=== PATIENT | female | born 1985 | race Caucasian/White ===

== ENCOUNTER → 2017-02-14 | Outpatient (CLI) | payer OTHER ==
--- NOTE | 2017-02-14 20:18 | DI ---
MRI CERVICAL SPINE W/O CN,02/14/2017 2:48 PM: Clinical History: Neck pain after a fall from a horse. Previous Exam: None at this facility. Findings: Multiplanar MR images are obtained through the cervical spine without contrast. Alignment is anatomic. No fractures are seen. Marrow signal is preserved. The spinal cord descends normally with normal course and caliber and signal characteristics. The posterior fossa is unremarkable. The prevertebral soft tissues are unremarkable. There is some co ngenital narrowing of the central canal. Individual intervertebral disc spaces: C2/3: No significant stenosis. C3/C4: There is a very small central disc extrusion without significant stenosis. C4/5: There is a left paracentral disc extrusion measuring 3 mm and contributing to moderate to sever e central canal stenosis. There is no significant neural foraminal narrowing. C5/6: There is a left paracentral disc extrusion at this level also measuring 3 mm and contributing t o moderate central canal stenosis without significant neural foraminal narrowing. C6/7: There is some disc desiccation and annular fissuring and a broad-based disc bulge eccentric to the left with some mild central canal stenosis without significant neuroforaminal narrowing. Impression: C3/C4: There is a very small central disc extrusion without significant stenosis. C4/5: There is a left paracentral disc extrusion measuring 3 mm and contributing to moderate to sever e central canal stenosis. There is no significant neural foraminal narrowing. C5/6: There is a left paracentral disc extrusion at this level also measuring 3 mm and contributing t o moderate central canal stenosis without significant neural foraminal narrowing. C6/7: There is some disc desiccation and annular fissuring and a broad-based disc bulge eccentric to the left with some mild central canal stenosis without significant neuroforaminal narrowing.
== END ==
LOC: MRI 14:47
PROVIDERS: ATTEND Chiropractor
DX: M54.2 Cervicalgia (principal); M50.21 Other cervical disc displacement, high cervical region; M50.122 Cervical disc disorder at C5-C6 level with radiculopathy; M50.323 Other cervical disc degeneration at C6-C7 level
CPT/HCPCS: 72141

== ENCOUNTER → 2017-03-28 | Outpatient (CLI) | payer OTHER ==
[2017-03-28 17:32] LABS: BASOPHILS # (AUTO) 0.04 10*3/UL; BASOPHILS % (AUTO) 0.6 % (0-1); EOSINOPHILS # (AUTO) 0.23 10*3/UL; EOSINOPHILS % (AUTO) 3.4 % (0-8); HEMOGLOBIN 13.6 g/dL (12.0-16.0); MEAN CORPUSCULAR HEMOGLOBIN 31.5 PG (27-31); MEAN CORPUSCULAR HGB CONC 33.2 g/dL (33-37); MEAN CORPUSCULAR VOLUME 94.9 FL (81-99); MONOCYTES # (AUTO) 0.49 10*3/UL (0.3-0.8); MONOCYTES % (AUTO) 7.1 % (5-15); NEUTROPHILS % (AUTO) 55.4 % (50-80); RED BLOOD COUNT 4.32 10^6/uL (4.20-5.40)
[2017-03-28 17:44] LABS: PLATELET MORPHOLOGY COMMENT NORMAL MORPHOLOGY (NORM); RBC MORPHOLOGY COMMENT NORMAL MORPHOLOGY (NORM); WBC MORPHOLOGY COMMENT NORMAL MORPHOLOGY (NORM)
== END ==
LOC: MOB LAB 16:14
PROVIDERS: ATTEND Student in an Organized Health Care Education/Training Program
DX: R61 Generalized hyperhidrosis (principal); R53.83 Other fatigue; M25.541 Pain in joints of right hand
CPT/HCPCS: 36415; 84443; 84550; 85025; 85652; 86038; 86200; 86431

== ENCOUNTER → 2017-05-23 | Outpatient (CLI) | payer OTHER ==
[2017-05-23 11:45] LABS: BLOOD UREA NITROGEN 22 mg/dL (7-22); CALCIUM 9.5 mg/dL (8.7-10.7); EST GLOMERULAR FILTRATION > 60 (>60 ml/min/1.73m(2)); MAGNESIUM 1.9 mg/dL (1.6-2.4); SERUM ALBUMIN 4.7 g/dL (3.5-4.8)
== END ==
LOC: MOB LAB 10:26
PROVIDERS: ATTEND Nurse Practitioner Family
DX: R53.82 Chronic fatigue, unspecified (principal); I34.1 Nonrheumatic mitral (valve) prolapse
CPT/HCPCS: 36415; 80053; 82310; 82565; 82728; 83540; 83550; 83735; 84100; 86970

== ENCOUNTER 2018-11-18 01:50 | Inpatient (IN) ==
[2018-11-18] MEDS: Lactated Ringers-OB Dept 1,000 ML PRIMARY IV SCH ×4 (03:15→23:00)
[2018-11-18] MEDS ORDERED: Lactated Ringers-OB Dept 2,000 ML ONE (03:20)
[2018-11-18 05:14] LABS: Hematocrit [HCT] 34.8 % (37.0-47.0); Hemoglobin [HGB] 11.2 g/dL (12.0-16.0); MEAN CORPUSCULAR HEMOGLOBIN 30.8 PG (27-31); MEAN CORPUSCULAR HGB CONC 32.2 g/dL (33-37); MEAN CORPUSCULAR VOLUME 95.6 FL (81-99); MEAN PLATELET VOLUME 10.3 FL (7.4-12.2); RED BLOOD COUNT 3.64 10^6/uL (4.20-5.40)
[2018-11-18 05:39] LABS: BLOOD UREA NITROGEN 13 mg/dL (7-22); BUN/CREATININE RATIO 21.66 (6-20); SERUM ALBUMIN 3.2 g/dL (3.5-4.8)
--- NOTE | 2018-11-18 06:17 | OB.PROGRES ---
Intake - - Reason for Visit/Chief Complaint: Contractions Additional Reason(s) for Visit: breech Admitted From: Home - Estimated Due Date: 11/29/18 Gestational Age in Weeks and Days: 38 Weeks and 3 Days Para: 2 Term Births: 2 Births: 0 Number of Abortions (Spont./Elective): 4 Living Children: 2 - Labs Blood Type and Rh: O+ Group B Strep: Negative Hepatitis B Surface Antigen: Absent HIV: Negative Rubella Status: Immune VDRL/RPR: Absent Maternal - Vital Signs Last Taken Vital Signs: Vital Signs - Last Taken Temperature 97.6 F 11/18/18 04:30 Pulse Rate 72 11/18/18 04:30 Respiratory Rate 16 11/18/18 04:30 Blood Pressure 128/77 11/18/18 04:30 Pulse Ox 99 11/18/18 04:30 - Cervical Exam Cervical Dilation (cm): 0 Cervical Effacement Percentage: 50 Station: -2 Exam Performed By: Sabine - Vaginal Discharge Vaginal Bleeding Amount: None Monitoring - Uterine Activity Uterine Contraction Monitor Mode: External Uterine Contraction Pattern: Unable to determine Uterine Tone Measurement Phase: Soft Uterine Contraction Intensity: Mild Results - Labs CBC and BMP: 11/18/18 05:11 11/18/18 05:11 - Bedside Testing Bedside Urine Ketone: Negative Bedside Urine Leukocytes Esterase: Negative Bedside Urine Nitrite: Negative Bedside Urine Occult Blood: Negative Bedside Urine Protein: Negative Bedside Specific [place]: 1.030 Assessment and Plan - Assessment / Plan Additional Assessment/Plan Details: The patient is a 33-year-old white female at 38-3/7 weeks who has been followed by Dr. Subramanian this . Most recently, the patient's has been complicated by breech presentation. The patient presented to labor and delivery earlier this morning with the complaint of contractions. The patient states that her contractions started last evening around 5 PM and continued to around midnight. The patient then drove 2 hours to labor and delivery and the contractions started to decrease in frequency. Positive movement, no leak of fluid, no bleeding. No headaches that are not resolving. No abdominal pain would not deepa. The patient had an attempted external cephalic version on 11/11/2018 which was unsuccessful. The patient and her physician spoke and it was decided that she would go to [place] for an attempted external cephalic version since the patient really did not want a section. In [place], the patient was found to have an VICTOR MANUEL of 8 cm and an external cephalic version was not even attempted. The patient was sent home. On November 05 the patient had one blood pressure which was 142/67. The patient had a blood pressure earlier this morning which was 142/85. All other blood pressures today have been normal. All other blood pressures in her had been normal. The patient does not have a history of hypertension. The patient's also has been complicated by bacterial vaginosis. Group B strep was negative Past medical history significant for anxiety and depression. No hypertension, no diabetes, no asthma. Past surgical history No known drug allergies History of 2 vaginal deliveries with the largest being 8 pounds Objective: Abdomen is soft and gravid and nontender without guarding or rebound Cervix was checked by nurse and her cervix was closed [id number] 3 out of 4 No clonus noted Labs today showed an H&H of 11.2 and 34.8 and platelets 161,000. Creatinine was 0.6. AST and ALT were minimally elevated at 48 and 58. External monitor showed occasional contractions that spaced out. Good accelerations with reactive nonstress test Limited transabdominal ultrasound showed baby to be in the breech presentation with the baby's head in the right upper quadrant of the mother's abdomen versus last week when the baby's head was in the left upper quadrant. The baby's back is up and on the patient's left side. VICTOR MANUEL was completed and the fluid in the patient's left upper quadrant was 4.65 cm and in the right lower quadrant was 3.54 cm and in the left lower quadrant was 1.37 cm. There was a fluid pocket in the right upper quadrant but this also had umbilical cord so it could not be measured. Total VICTOR MANUEL was 9.56 cm Assessment: IUP 38-3/7 weeks with breech presentation with contractions that resolved. The patient's cervix is closed. VICTOR MANUEL was 9.56 cm with the baby in the breech presentation by ultrasound The patient had 1 elevated blood pressure of 142/85 but all other blood pressures were normal. The patient had one elevated blood pressure on October 29 of 142/67 but other blood pressures that they were normal and all blood pressures since that time here at [facility] but also in [place] have been normal. The patient has a normal H&H and is not hemoconcentrated. The patient's platelets are normal. The patient does have mildly elevated AST and ALT at 48 and 58. Normal AST is up to 39 in our lab and normal ALT is up to 52 Patient had negative urine protein on her urine dips this morning. The patient did start a 24-hour urine for total protein and this morning it 2 AM because of the one elevated blood pressure of 142/85 with all other blood pressures normal. I had requested this. Plan: I discussed with the patient, her , and the labor and delivery nurse the different options. The patient does have 2 elevated blood pressures although they are 20 days apart. All other blood pressures have been normal. Along with the 2 elevated blood pressures, the patient has mildly elevated AST and ALT this morning at 48 and 58. With this information, I did offer the patient a section secondary to persistent breech along with gestational hypertension and the to mildly elevated liver function tests. The patient previously expressed that she really does not want a section and we had talked about the possibility of hydration and hopefully the VICTOR MANUEL would be higher tomorrow morning and then we could attempt an external cephalic version if her VICTOR MANUEL was higher. However, I do not want to offer the patient an external cephalic version this morning with her VICTOR MANUEL of 9.5. With the new information of the mildly elevated liver function tests, a section for breech could be performed today. Since the patient lives 2 hours away, another alternative would be to keep the patient here at [facility] and collect the 24 urine for total protein, have external monitoring and repeat labs in 12 hours to ensure that the AST and ALT or not increasing. Also then repeat them again in 24 hours from now. Reassess the VICTOR MANUEL in the morning and consider an external cephalic version attempt. I explained that this would be the most conservative since the patient does not really want a section after having 2 normal vaginal deliveries but does have the minimally elevated liver function tests and we could follow her labs every 12 hours. If the ECV was successful, then the patient could undergo induction of labor with cervical ripening. If ECV was unsuccessful, then the patient could have a primary for breech presentation. The last option, which is not ideal, is for the patient to go home. The patient lives 2 hours away. I did express that I understood that this is [place] day and she has 2 children at home and events plan for today. We did talk about that the likelihood of the patient getting sick with preeclampsia is low with negative proteinuria and negative hemoconcentration with her H&H but definitely possible with the one elevated blood pressure that she had today although all other blood pressures were normal. The patient does live 2 hours from here and [facility] [place] the closest hospital [place]. With the patient going home, the patient will collect a 24-hour urine and then return tomorrow morning for repeat labs and an VICTOR MANUEL. If an external cephalic version is attempted and successful then patient can be induced. If ECV is unsuccessful, then section could be completed. We did discuss the possibility of preeclampsia and even eclampsia with the patient being 2 hours away from our hospital. The patient currently is considering her options with her . The patient considered her options and would like to stay here in the hospital and receive IV hydration to attempt to hydrate as well as possible to increase the VICTOR MANUEL. The patient would then like to try an ECV tomorrow. Also we will continue to collect the 24 urine for total protein. Repeat labs will be ordered for this afternoon at 1700 hrs. and then again in the morning. Her liver function tests can be reassessed. If the liver function tests are elevating significantly, I would recommend delivery later today. If her liver function tests are the same or normalized then we will repeat them again in the morning. If the ECV is unsuccessful in the morning, the patient will be offered a section tomorrow secondary to the mildly elevated AST and ALT and the 2 blood pressures that were elevated that are discussed above. Of course, the patient has a right to decline the section. The patient will also try some exercises today to try to help the baby to turn to the cephalic presentation.
[2018-11-18] MEDS ORDERED: fentaNYL Inj 100 MCG/2 ML VIAL IV PRN (07:11)
[2018-11-18] MEDS ORDERED: ONDANSETRON 4 MG/2 ML VIAL IVP PRN (07:11)
[2018-11-18] MEDS ORDERED: Metoclopramide Inj 10 MG/2 ML VIAL IV PRN (07:11)
[2018-11-18] MEDS ORDERED: LIDOCAINE HCL 2 % 10 ML JELLY URO-JECT TOPICAL PRN (07:11)
[2018-11-18] MEDS ORDERED: CITRIC ACID/SODIUM CITRATE 30 ML CUP PO PRN (07:11)
[2018-11-18] MEDS ORDERED: Nalbuphine Inj 20 MG/ML Ampule IVP PRN (07:11)
[2018-11-18] MEDS ORDERED: CALCIUM CARBONATE 500 MG (TUMS) CHEWABLE TABLET PO PRN (07:11)
[2018-11-18] MEDS ORDERED: BUTORPHANOL TARTRATE 2 MG/1 ML VIAL IVP PRN (07:11)
[2018-11-18] MEDS ORDERED: TERBUTALINE SULFATE 1 MG/1 ML SDV SUBCUT PRN (07:11)
[2018-11-18] MEDS ORDERED: LIDOCAINE W/ SODIUM BICARB 0.5 ML SYR SUBD PRN (07:11)
[2018-11-18] MEDS ORDERED: Carboprost Inj 250 MCG/ML AMP IM PRN (07:11)
[2018-11-18] MEDS ORDERED: ePHEDrine Inj 50 MG/ML AMP IVP PRN (07:11)
[2018-11-18] MEDS ORDERED: Phenylephrine Inj 50 MCG in Sodium Chloride 0.9% vial 0.5 ML IVP PRN (07:11)
[2018-11-18] MEDS ORDERED: METHYLERGONOVINE MALEATE 0.2 MG/1 ML VIAL IM PRN (07:11)
[2018-11-18] MEDS ORDERED: OXYTOCIN 10 UNIT/1 ML IM PRN (07:11)
[2018-11-18] MEDS ORDERED: diphenhydrAMINE 50 MG/1 ML VIAL IVP PRN (07:11)
[2018-11-18] MEDS ORDERED: MISOPROSTOL 200 MCG TABLET RECTAL PRN (07:11)
[2018-11-18] MEDS ORDERED: FAMOTIDINE 20 MG/2 ML VIAL IVP PRN ×2 (07:11)
[2018-11-18] MEDS ORDERED: NALOXONE 0.4 MG/1 ML VIAL IVP PRN (07:11)
[2018-11-18] MEDS ORDERED: Naloxone Inj 0.01 MG in Sodium Chloride 0.9% vial 1 ML IVP PRN (07:11)
[2018-11-18] MEDS ORDERED: Lidocaine 1% 10 MG/ML - 20 ML VIAL SUBCUT PRN (07:11)
[2018-11-18] MEDS ORDERED: CefOXitin Inj 2 GM in Sodium Chloride 0.9% 100 ML IV PRN (07:11)
[2018-11-18] MEDS ORDERED: Oxytocin 20 Units + LR 20 UNIT/1,000 ML BAG IV SCH (07:15)
[2018-11-18] MEDS ORDERED: TERBUTALINE SULFATE 1 MG/1 ML SDV IV ONE (12:30)
[2018-11-18] MEDS: ACETAMINOPHEN 325 MG TABLET PO PRN ×2 (13:55→20:04)
[2018-11-18 17:10] LABS: Hematocrit [HCT] 34.7 % (37.0-47.0); Hemoglobin [HGB] 11.5 g/dL (12.0-16.0); MEAN CORPUSCULAR HEMOGLOBIN 31.9 PG (27-31); MEAN CORPUSCULAR HGB CONC 33.1 g/dL (33-37); MEAN CORPUSCULAR VOLUME 96.1 FL (81-99); MEAN PLATELET VOLUME 10.6 FL (7.4-12.2); RED BLOOD COUNT 3.61 10^6/uL (4.20-5.40)
[2018-11-18 17:23] LABS: BLOOD UREA NITROGEN 11 mg/dL (7-22); BUN/CREATININE RATIO 13.75 (6-20); SERUM ALBUMIN 3.5 g/dL (3.5-4.8); Uric Acid 4.2 mg/dl (2.5-6.2)
--- NOTE | 2018-11-18 19:02 | OB.PROGRES ---
Interval History: The patient states that she feels well. Positive movement. Her family did come visit today. Occasional contraction. She has done her pelvic tilt exercises a couple times today but not regularly to try to have the baby turn spontaneously from breech to cephalic. Objective - Cervical Exam Cervical Exam: Deferred Heart Rate Interpretation Category: Category I - Labs CBC and BMP: 11/18/18 17:00 11/18/18 17:00 - Vital Signs Last Taken Vital Signs: Vital Signs - Last Taken Temperature 97.7 F 11/18/18 16:53 Pulse Rate 70 11/18/18 16:53 Respiratory Rate 18 11/18/18 16:53 Blood Pressure 133/83 11/18/18 16:53 Pulse Ox 98 11/18/18 16:53 - Additional Details Additional Details: Labs reviewed and AST and ALT decreased to 40 and 55 which is just slightly abnormal for both values. Creatinine was 0.8. Platelets were normal at 167,000. H&H is about the same. Assessment and Plan - Assessment / Plan Additional Assessment/Plan Details: Assessment: IUP 38-4/7 weeks with breech presentation The patient has had 2 elevated blood pressures over the past 20 days. Therefore gestational hypertension could be diagnosed. The patient also had mildly elevated AST and ALT this morning which are slightly improved this evening but still minimally elevated. Patient's creatinine is 0.8. H&H is not hemoconcentrated. No more elevated blood pressures today. Plan: The patient would like to try an external cephalic version again in the morning if her VICTOR MANUEL is improved. The patient is receiving IV fluids at 1 25 mL per hour. I will check a gestational hypertension panel in the morning. If the external cephalic version is successful, induction of labor with cervical ripening. If the external cephalic version is unsuccessful, primary section tomorrow would be offered to the patient. I did speak with anesthesia and the OR Daja is full tomorrow. Currently, ECV would be around 11:00 in the morning to 1:00 in the afternoon between cases. Patient made aware. Patient may have clear liquids until about 0500 hrs. in the morning. No regular diet after midnight. I will inform the patient's primary OB physician of the plan in the morning as this is and she is not working today.
[2018-11-18] MEDS ORDERED: OMEPRAZOLE 20 MG CAPSULE PO SCH (21:00)
[2018-11-18] MEDS ORDERED: Sertraline Tab 50 MG TAB PO SCH (21:00)
[2018-11-19 05:12] LABS: Hematocrit [HCT] 34.2 % (37.0-47.0); Hemoglobin [HGB] 10.9 g/dL (12.0-16.0); MEAN CORPUSCULAR HEMOGLOBIN 30.6 PG (27-31); MEAN CORPUSCULAR HGB CONC 31.9 g/dL (33-37); MEAN CORPUSCULAR VOLUME 96.1 FL (81-99); MEAN PLATELET VOLUME 10.9 FL (7.4-12.2); RED BLOOD COUNT 3.56 10^6/uL (4.20-5.40)
[2018-11-19 05:25] LABS: BLOOD UREA NITROGEN 10 mg/dL (7-22); BUN/CREATININE RATIO 16.66 (6-20); Uric Acid 4.1 mg/dl (2.5-6.2)
[2018-11-19 06:16] LABS: 24 HOUR URINE TOTAL VOLUME 2675 ML
[2018-11-19] MEDS: Lactated Ringers-OB Dept 1,000 ML PRIMARY IV SCH ×2 (06:48→16:42)
[2018-11-19] MEDS ORDERED: FAMOTIDINE 20 MG TABLET PO SCH (09:00)
--- NOTE | 2018-11-19 09:30 | OB.PROGRES ---
Interval History: The patient feels well this morning. Patient did have her VICTOR MANUEL. No regular contractions. Objective - Cervical Exam Cervical Exam: Deferred Heart Rate Interpretation Category: Category I - Labs CBC and BMP: 11/19/18 05:00 11/19/18 05:00 - Vital Signs Last Taken Vital Signs: Vital Signs - Last Taken Temperature 97.5 F 11/19/18 04:59 Pulse Rate 59 L 11/19/18 07:58 Respiratory Rate 16 11/19/18 04:59 Blood Pressure 132/77 11/19/18 04:59 Pulse Ox 100 11/19/18 04:59 - Additional Details Additional Details: Lungs clear to auscultation Heart regular rate and rhythm Abdomen is gravid, soft, nontender VICTOR MANUEL was completed by ultrasound and VICTOR MANUEL was 12.5 cm Assessment and Plan - Assessment / Plan Additional Assessment/Plan Details: IUP 38 4/7 weeks with gestational hypertension. 24 urine protein was less than 300 mg. Labs normal today with normal liver function tests. Creatinine was 0.6. Platelets are 158,000. Blood pressures yesterday were normal except for the one elevated blood pressure around admission time. The patient's baby remains in the breech presentation VICTOR MANUEL is improved today at 12.5 cm. Plan: Attempt at external cephalic version around noon today depending upon the operating room schedule If the ECV is unsuccessful, currently the plan is a primary for breech If the ECV is successful, cervical ripening and induction of labor. The patient expressed understanding with this plan.
[2018-11-19] MEDS ORDERED: TERBUTALINE SULFATE 1 MG/1 ML SDV ONE (12:11)
--- NOTE | 2018-11-19 12:43 | DI ---
US OB , Limited,11/19/2018 8:14 AM: Clinical History: Previously low amniotic fluid index. Previous Exam: 11/04/18 Findings: Multiple grayscale and color Doppler sonographic images are obtained through the pelvis, and demonstr ate a single live intrauterine gestation in breech presentation. Detected Doppler heart tones measure 136 beats per minute. The placenta is anterior and grade 2 without visible defects. Amniotic fluid index measured 12.5 cm. Impression: Single live intrauterine gestation with amniotic fluid index of 12.5 cm.
--- NOTE | 2018-11-19 13:30 | OB.PROGRES ---
Date of Service: 11/19/18 Time of Service: 12:15 Interval History: 33 yo at 38 4/7 weeks gestation, complicated by breech presentation. Patient consented verbally and in written form for ECV. VICTOR MANUEL was 12.5 cm this morning. We had the u/s bedside for the procedure. A category I tracing was obtained prior to starting. 0.25mg terbutaline was given IV prior to starting. The 's head was in the RUQ. The spine tracked along to LLQ and buttock was in LLQ. Her abdomen was covered in baby oil. I attempted to lift the infant's bottom as Dr. Baugh attempted to have the baby summersault forward. Through three attempts we were periodically checking the infant's heart rate via u/s. Mom and baby tolerated these attempts well but unfortunately we were not able to get the infant to budge and rotate. We will plan to proceed with primary LTCS for breech presentation. Objective - Cervical Exam [place]: rare contractions Heart Rate: baseline 140, moderate variability, +accels, no decels Heart Rate Interpretation Category: Category I - Labs CBC and BMP: 11/19/18 05:00 11/19/18 05:00 - Vital Signs Last Taken Vital Signs: Vital Signs - Last Taken Temperature 97.8 F 11/19/18 07:45 Pulse Rate 59 L 11/19/18 07:58 Respiratory Rate 14 11/19/18 07:45 Blood Pressure 120/78 11/19/18 07:45 Pulse Ox 100 11/19/18 04:59 Assessment and Plan - Patient Problems (1) Breech presentation Current Visit: Yes Status: Acute Code(s): O32.1XX0 - Maternal care for breech presentation, not applicable or unspecified
[2018-11-19] MEDS ORDERED: OXYTOCIN 10 UNIT/1 ML ONE (14:40)
[2018-11-19] MEDS ORDERED: ePHEDrine Inj 50 MG/ML AMP ONE (14:40)
[2018-11-19] MEDS ORDERED: Lactated Ringers 1,000 ML PRIMARY IV ONE (15:09)
[2018-11-19] MEDS ORDERED: ONDANSETRON 4 MG/2 ML VIAL ONE (15:35)
--- NOTE | 2018-11-19 16:59 | CRNA.PROCE ---
Central Neuraxis Block Placemt - - Safety Measures: Time Out Taken, Site Verified - - Type of Block: Subarachnoid Reason for Block: Surgical Moniters Used During Block: EKG, SPO2, NIBP Positioning: Sitting Skin Prep Used: Betadine Skin Infiltration - Enter Amount Used in Comment Field: 1% Xylocaine (mL): Yes (wheal) Introducer User: 23 Gauge Spinal Needle Used: 25 Javed 80 mm Local Anesthetic - Enter Amount Used in Comment Field: 0.75 % Bupivacaine with Dextrose (ml): Yes (15mg) Bioclusive Dressing Applied: No Anesthesia Time - Other Weight: 83.461 kg Height: 5 ft 8 in Body Mass Index (BMI): 27.9
--- NOTE | 2018-11-19 17:00 | CRNA.PROGR ---
Anesthesia Recovery Phase I - Post Anesthesia Evaluation Patient's Condition on Arrival in Phase I: Stable Pain Level: 0
--- NOTE | 2018-11-19 17:00 | CRNA.PROGR ---
Anesthesia Time - Procedure/Recovery Time Start Date: 11/19/18 End Date: 11/19/18 Anesthesia : Time In: 14:52 Anesthesia : Time Out: 16:38 Anesthesia : Total Time: 106 - Total Anesthesia Time Total Anesthesia Time (minutes): 106 - Other Weight: 83.461 kg Height: 5 ft 8 in Body Mass Index (BMI): 27.9 Physical Status: P2 Anesthesia Type: Spinal Block Obstetrics: C/S anesthesia only (Breach)
[2018-11-19] MEDS ORDERED: diphenhydrAMINE 25 MG CAPSULE PO PRN (17:06)
[2018-11-19] MEDS ORDERED: Naloxone Inj 0.01 MG, Sodium Chloride 0.9% vial 1 ML IVP PRN ×2 (17:06)
[2018-11-19] MEDS ORDERED: CALCIUM CARBONATE 500 MG (TUMS) CHEWABLE TABLET PO PRN (17:06)
[2018-11-19] MEDS ORDERED: ONDANSETRON 4 MG/2 ML VIAL IVP PRN (17:06)
[2018-11-19] MEDS ORDERED: Oxytocin 20 Units + LR 20 UNIT/1,000 ML BAG IV SCH (17:06)
[2018-11-19] MEDS ORDERED: D5-LR 1,000 ML PRIMARY IV SCH (17:06)
[2018-11-19] MEDS ORDERED: diphenhydrAMINE 50 MG/1 ML VIAL IV PRN (17:06)
[2018-11-19] MEDS ORDERED: Nalbuphine Inj 20 MG/ML Ampule IVP PRN (17:06)
[2018-11-19] MEDS ORDERED: BUTORPHANOL TARTRATE 2 MG/1 ML VIAL IVP PRN (17:06)
[2018-11-19] MEDS ORDERED: LANOLIN HPA 40 GM TUBE TOPICAL PRN (17:06)
[2018-11-19] MEDS ORDERED: FAMOTIDINE 20 MG/2 ML VIAL IVP PRN (17:06)
--- NOTE | 2018-11-19 17:09 | OB.OP.NOTE ---
Operative Report - - Surgeon: Conor Subramanian MD Head Baggage Porter: Arpit Baugh MD Anesthesia Type: Regional Anesthesia Provider: Nicko Gramajo CRNA Surgery Date: 11/19/18 Preoperative Diagnosis: 38 4/7 weeks gestation. Breech presentation. Satisfied parity Postoperative Diagnosis: TAGA female , breech presentation. 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 She had one elevated pressure on arrival and another elevated pressure about 20 days prior, no proteinuria so diagnosed with gestational hypertension. Her labs on arrival were notable for elevated AST and ALT, which normalized today. She was kept overnight for IV hydration. Her VICTOR MANUEL this morning was 12.5 so ECV was again attempted, but uns uccessful. She was then consented for a primary LTCS. The patient was taken to the operating room where spinal anesthesia was found to be adequate. She was then prepared and draped in the normal sterile fashion in the dorsal supine position with a leftward tilt. A Pfannenstiel skin incision was then made with the scalpel and carried through to the underlying layer of fascia with the Bovie. The fascia was incised in the midline and the incision extended laterally with the Bovie. The superior aspect of the fascial incision was then grasped with the Kaden clamps, elevated, and the underlying rectus muscles dissected off bluntly. Attention was then turned to the inferior aspect of this incision which, in a similar fashion, was grasped with the Kaden clamps and the rectus muscles dissected off both bluntly and with the Bovie. The rectus muscle was then in the midline, and the peritoneum identified and entered digitally. The peritoneal incision was then extended superiorly and inferiorly with good visualization of the bladder. The Landen retractor was then inserted and the vesicouterine peritoneum was identified. The lower uterine segment was incised in a transverse fashion with the scalpel. The uterine incision was then extended laterally in a blunt fashion. The infant's buttock was delivered atraumatically followed by each leg then each arm. The head was then delivered atraumatically. The nose and mouth were suctioned with the bulb suction and the cord clamped and cut after 60 seconds for delayed cord clamping. The infant was handed off to the awaiting nurse. Cord gases and cord blood were sent for analysis. The placenta was then removed manually; the uterus exteriorized, and cleared of all clots and debris. The uterine incision was repaired with 0 Vicryl in a running, locked fashion. Several figure of 8 stitches with 0-vicryl were used to obtain hemostasis, first at the L side then R. A second embricating layer of the same suture was used to obtain excellent hemostasis. The peritoneal cavity was then copiously irrigated with warm saline. The uterus was returned to the abdomen. The paracolic gutters were copiously irrigated with warm saline and a second look at the uterine incision continued to reveal excellent hemostasis. Attention was then turned to tubal ligation. Her L tube was quite vascular and decision was made then to proceed with filshie clips. The tubes were clearly identified, a filshie clip was first placed on the R tube about 3 cm from the cornua. A second was then placed on the L tube. Given the vascularity a second filshie clip was placed on each tube. The peritoneum was closed with 3-0 Vicryl. The fascia reapproximated with 0 Vicryl in a running fashion. The subcutaneous space was irrigated co piously with warm saline and then closed first with 3-0 Vicryl. The skin was then closed with 3-0 stratafix. The skin was reapproximated with Steri-Strips and a Silverlon dressing applied. Fundal massage was completed with no clots in vaginal vault. The patient tolerated the procedure well. Sponge, lap, and needle counts were correct x2. Mefoxin was given preoperatively less than one hour prior to incision time. The patient was taken to the recovery room in stable condition. Patient Problems - Patient Problem List (1) Breech presentation Current Visit: Yes Status: Acute Code(s): O32.1XX0 - Maternal care for breech presentation, not applicable or unspecified Category: Medical
[2018-11-19] MEDS: KETOROLAC 15 MG/1 ML VIAL IVP SCH ×2 (17:25→23:00)
[2018-11-19] MEDS: oxyCODONE-ACETAMINOPHEN 5-325 TAB PO PRN ×3 (17:26→22:12)
[2018-11-19] MEDS: HYDROmorphone 2 MG/1 ML IVP PRN (20:15)
[2018-11-19] MEDS ORDERED: OMEPRAZOLE 20 MG CAPSULE PO SCH (22:45)
[2018-11-19] MEDS: Sertraline Tab 50 MG TAB PO SCH (22:59)
[2018-11-20] MEDS: HYDROmorphone 2 MG/1 ML IVP PRN ×2 (00:06→04:24)
[2018-11-20] MEDS: oxyCODONE-ACETAMINOPHEN 5-325 TAB PO PRN ×6 (02:13→23:30)
[2018-11-20] MEDS: KETOROLAC 15 MG/1 ML VIAL IVP SCH ×3 (05:20→21:54)
[2018-11-20 06:02] LABS: Hematocrit [HCT] 30.5 % (37.0-47.0); Hemoglobin [HGB] 9.5 g/dL (12.0-16.0); MEAN CORPUSCULAR HEMOGLOBIN 29.8 PG (27-31); MEAN CORPUSCULAR HGB CONC 31.1 g/dL (33-37); MEAN CORPUSCULAR VOLUME 95.6 FL (81-99); MEAN PLATELET VOLUME 10.4 FL (7.4-12.2); RED BLOOD COUNT 3.19 10^6/uL (4.20-5.40)
[2018-11-20 06:19] LABS: BLOOD UREA NITROGEN 8 mg/dL (7-22); BUN/CREATININE RATIO 13.33 (6-20); SERUM ALBUMIN 2.6 g/dL (3.5-4.8)
--- NOTE | 2018-11-20 08:15 | OB.PROGRES ---
Subjective Post Day: 1 Pain Management: Has been getting some IV dilaudid as well Cedillo Catheter: Yes Flatus: No Lochia Color: Rubra/Red Scant < 10 ml Diet: Regular [place] Feeding Method: Exculsively Ambulating: Yes Objective - General General Appearance: POSITIVE: No Acute Distress, Cooperative - Cardiovacular Cardiovascular Exam: POSITIVE: RRR, Systolic Murmur Edema: +1 Pedal Edema Extremities: Negative Oksana's - Bilaterally - Respiratory Respiratory Exam: POSITIVE: Clear to Auscultation - Bilaterally, Breathing Non Labored. NEGATIVE: Wheezes - Abdomen Bowel Sounds: Hypoactive Abdominal Wound Assessment: Silverlone Dressing - Fundus/Lochia/Perineum Uterus Consistency: Firm Assesstment / Plan (1) Breech presentation Current Visit: Yes Status: Acute Support Text: 33 yo G7 now P3043, POD 1 s/p c/s for breech presentation -Pain control has been a challenge, we did not use duromorph secondary to her nausea but pain not well controlled with po percocet. She has been getting 0.5mg dilaudid IV. Will work on limiting this today. -D/c cedillo, shower today - well -Anticipate d/c in 24 - 48 hours
--- NOTE | 2018-11-20 09:04 | CRNA.PROGR ---
Anesthesia Recovery Phase I - Post Anesthesia Evaluation Pain Level: 0
--- NOTE | 2018-11-20 09:04 | CRNA.PROCE ---
Central Neuraxis Block Placemt - - Safety Measures: Time Out Taken, Site Verified - - Type of Block: Subarachnoid Reason for Block: Surgical Moniters Used During Block: EKG, SPO2, NIBP Positioning: Sitting Skin Prep Used: ChloroPrep Draped: Yes Skin Infiltration - Enter Amount Used in Comment Field: 1% Xylocaine (mL): Yes (wheal) Introducer User: 23 Gauge Spinal Needle Used: 25 Javed 80 mm Local Anesthetic - Enter Amount Used in Comment Field: 0.75 % Bupivacaine with Dextrose (ml): Yes (15mg) - - Additional Details: Sitting, landmarks id'd, prep and drape. Skin wheal L4-5 and introducer placed, clear csf first pass and 15mg .75% marcaine with dex administered with birefringence x 2. Supine with BERTA Anesthesia Time - Other Weight: 83.461 kg Height: 5 ft 8 in Body Mass Index (BMI): 27.9
--- NOTE | 2018-11-20 09:05 | CRNA.PROGR ---
Anesthesia Time - Procedure/Recovery Time Start Date: 11/20/18 End Date: 11/20/18 Anesthesia : Time In: 07:59 Anesthesia : Time Out: 08:52 Anesthesia : Total Time: 53 - Total Anesthesia Time Total Anesthesia Time (minutes): 53 - Other Weight: 83.461 kg Height: 5 ft 8 in Body Mass Index (BMI): 27.9 Physical Status: P2 Anesthesia Type: Spinal Block Obstetrics: C/S anesthesia only
--- NOTE | 2018-11-20 09:06 | CRNA.PROGR ---
Anesthesia Note - Progress Notes Anesthesia Progress Note: She is resting quietly at time of visit. Has been ambulatory ad evan. Discussed her anesthetic course and she has no questions or concerns at this time. Laboratory Results 11/19/18 11/20/18 11/20/18 10:04 05:50 05:50 WBC 13.30 H RBC 3.19 L Hgb 9.5 L Hct 30.5 L MCV 95.6 MCH 29.8 MCHC 31.1 L RDW Std Deviation 42.5 RDW Coeff of Octavio 12.6 Plt Count 151 MPV 10.4 Sodium 137 Potassium 4.0 Chloride 108 Carbon Dioxide 24 Anion Gap 5 BUN 8 Creatinine 0.6 Estimated GFR > 60 BUN/Creatinine Ratio 13.33 Glucose 83 Calculated Osmolality 280.0 Calcium 8.5 L Total Bilirubin 0.3 AST 27 ALT 44 Alkaline Phosphatase 81 Total Protein 4.6 L Albumin 2.6 L Globulin 2.0 L Albumin/Globulin Ratio 1.30 Blood Type O POSITIVE Antibody Screen Negative Vital Signs (24 hrs) 11/19/18 16:38 11/19/18 16:41 11/19/18 16:46 Temperature 97.4 F Pulse Rate 60 66 65 Pulse Rate [Pulse Oximeter] Respiratory Rate 15 Blood Pressure 150/132 143/98 164/140 Blood Pressure [Right Arm] Pulse Ox 100 98 98 11/19/18 16:56 11/19/18 17:05 11/19/18 17:15 Temperature 97.4 F Pulse Rate 70 71 67 Pulse Rate [Pulse Oximeter] Respiratory Rate 16 18 18 Blood Pressure 129/64 121/72 131/89 Blood Pressure [Right Arm] Pulse Ox 97 96 96 11/19/18 17:30 11/19/18 17:45 11/19/18 18:00 Temperature Pulse Rate 60 64 67 Pulse Rate [Pulse Oximeter] Respiratory Rate 18 18 Blood Pressure 136/85 141/91 134/79 Blood Pressure [Right Arm] Pulse Ox 96 97 93 11/19/18 18:30 11/19/18 20:30 11/19/18 22:10 Temperature 97.9 F 97.7 F Pulse Rate 75 Pulse Rate [Pulse Oximeter] 61 71 Respiratory Rate 16 15 Blood Pressure 143/85 Blood Pressure [Right Arm] 140/87 Pulse Ox 100 99 11/20/18 02:15 11/20/18 06:49 Temperature 98.1 F 98.7 F Pulse Rate 71 Pulse Rate [Pulse Oximeter] 71 Respiratory Rate 16 18 Blood Pressure Blood Pressure [Right Arm] 136/86 142/86 Pulse Ox 96 94
[2018-11-20] MEDS: Prenatal Multivitamin Tab 1 TAB TAB PO SCH (09:19)
[2018-11-20] MEDS: Senna/Docusate Tab 1 TAB TAB PO SCH ×2 (09:19→21:47)
[2018-11-20] MEDS ORDERED: KETOROLAC 15 MG/1 ML VIAL IVP ONE (17:45)
[2018-11-20] MEDS: Sertraline Tab 50 MG TAB PO SCH (21:47)
[2018-11-20] MEDS: IBUPROFEN 800 MG TABLET PO SCH (21:54)
[2018-11-21] MEDS: IBUPROFEN 800 MG TABLET PO SCH ×2 (02:40→11:17)
[2018-11-21] MEDS: oxyCODONE-ACETAMINOPHEN 5-325 TAB PO PRN ×5 (03:34→20:49)
--- NOTE | 2018-11-21 08:36 | DCSUMMARY ---
Hospitalization Summary Admit Date: 11/18/18 Discharge Date: 11/21/18 Primary Diagnosis:: term , breech presentation, s/p LTCS with BTL Delivery Type: Hospital Course: 33 yo G7 no P3043 who presented on 11/18/18 at 38 3/7 weeks gestation with contractions, that subsided with hydration. She did have 2 elevated blood pressures 20 days apart and was diagnosed with gestational HTN, with elevated LFTs (that normalized). further complicated by breech presentation. ECV was attempted at 37 weeks unsuccesfully, she went to [place] later that week but they did not attempt 2/2 VICTOR MANUEL of 8cm. She was observed overnight and was IV hydrated. on 11/19/18 her VICTOR MANUEL was 12.5 cm and ECV was again attempted but unsuccessful. She was then taken to for breech presentation with BTL as she has satisfied parity. Post op course notable for a couple of elevated BPs in 140s/90s. She denies LUX, vision changes, RUQ pain. Breast feeding well. / Postop Complications: none apparent Complications: none apparent Exam - Vitals Vital Signs: Vital Signs Temperature 98.4 F Temperature Source Oral Pulse Rate [Pulse Oximeter] 70 Pulse Rate 71 Respiratory Rate 17 Blood Pressure [Right Arm] 140/89 Blood Pressure 143/85 Pulse Ox 95 Oxygen Flow Rate RA Oxygen Delivery Method Room Air Height 5 ft 8 in Weight 184 lb - General General Appearance: No Acute Distress, Cooperative - Head Head Exam: Normal Inspection - Eye Eye Exam: POSITIVE: Normal Appearance, EOMI - Neck Neck Exam: Normal Inspection - Respiratory Respiratory Exam: POSITIVE: Clear to Auscultation - Bilaterally, Breathing Non Labored - Cardiovascular Cardiovascular Exam: POSITIVE: RRR - GI/Abdominal GI/Abdominal Exam: POSITIVE: Normal Bowel Sounds Additional GI/Abdominal Exam Details: Uterus firm, silverlon dressing in place - Extremities Extremities Exam: POSITIVE: No Edema Present, Negative Oksana's sign. NEGATIVE: Calf Tenderness - Neurological Neurological Exam: POSITIVE: Alert, Oriented x 3 - Psychiatric Psychiatric Exam: POSITIVE: Normal Affect, Normal Mood Data Peritnent Studies: 11/18/18 11/18/18 11/18/18 05:11 05:11 17:00 WBC 11.12 H Hgb 11.2 L Hct 34.8 L Plt Count 161 AST 48 H 40 H ALT 58 H D 55 H Ur 24 Hour Volume Ur Total Protein 24 Hr U Tot Protein 24h, Calc 11/19/18 11/19/18 11/20/18 02:00 05:00 05:50 WBC 13.30 H Hgb 9.5 L Hct 30.5 L Plt Count 151 AST 29 ALT 49 Ur 24 Hour Volume 2675 Ur Total Protein 24 Hr 8 U Tot Protein 24h, Calc 214 11/20/18 05:50 WBC Hgb Hct Plt Count AST 27 ALT 44 Ur 24 Hour Volume Ur Total Protein 24 Hr U Tot Protein 24h, Calc Patient Problems - Patient Problem List (1) Breech presentation Current Visit: Yes Status: Acute Code(s): O32.1XX0 - Maternal care for breech presentation, not applicable or unspecified Support Text: 33 yo G7 now P3043 POD 2 s/p primary LTCS for breech with BTL D/c to home today Rxs for percocet 5/325 #45, motrin 800mg #60, senokot #60 written To f/u Saturday for a blood pressure check, or at home F/u with me in 1 week for wound check, to take dressing off at 7 days postop Category: Medical
[2018-11-21] MEDS: Senna/Docusate Tab 1 TAB TAB PO SCH ×2 (08:59→20:48)
[2018-11-21] MEDS: Prenatal Multivitamin Tab 1 TAB TAB PO SCH (08:59)
[2018-11-21 10:15] LABS: Hematocrit [HCT] 29.6 % (37.0-47.0); Hemoglobin [HGB] 9.3 g/dL (12.0-16.0); MEAN CORPUSCULAR HEMOGLOBIN 30.9 PG (27-31); MEAN CORPUSCULAR HGB CONC 31.4 g/dL (33-37); MEAN CORPUSCULAR VOLUME 98.3 FL (81-99); MEAN PLATELET VOLUME 10.3 FL (7.4-12.2); RED BLOOD COUNT 3.01 10^6/uL (4.20-5.40)
[2018-11-21 10:23] LABS: BLOOD UREA NITROGEN 7 mg/dL (7-22); Uric Acid 4.4 mg/dl (2.5-6.2)
[2018-11-21] MEDS ORDERED: NIFEdipine 30 MG ER 24H TABLET PO ONE ×2 (10:50→15:12)
--- NOTE | 2018-11-21 18:17 | OB.PROGRES ---
Subjective Post Day: 2 Pain Management: PO Rivera Catheter: No Flatus: Yes Lochia Color: Rubra/Red Small 10-25 ml Diet: Regular Feeding Method: Exculsively Ambulating: Yes Concerns / Additional Information: Everything was ready for discharge and patient's BPs were then elevated and have remained so today despite 2 doses of nifedipine ER 30mg. Has had a slight LUX. Denies scotomota, RUQ pain. Selected Entries 11/21/18 07:40 11/21/18 09:00 11/21/18 09:25 Blood Pressure [Right Arm] 140/89 146/102 145/86 11/21/18 09:55 11/21/18 10:30 11/21/18 17:00 Blood Pressure [Right Arm] 141/84 143/88 141/87 Assesstment / Plan (1) Breech presentation Current Visit: Yes Status: Acute (2) hypertension Current Visit: Yes Status: Acute Support Text: Will hold off ibuprofen through the night. Continue nifedipine ER 60mg po daily. Gestational htn panel in the am. Anticipate d/c tomorrow if BPs controlled.
[2018-11-21] MEDS: Sertraline Tab 50 MG TAB PO SCH (20:48)
[2018-11-22] MEDS: oxyCODONE-ACETAMINOPHEN 5-325 TAB PO PRN ×4 (00:20→14:07)
[2018-11-22 06:30] LABS: Hematocrit [HCT] 33.7 % (37.0-47.0); Hemoglobin [HGB] 10.8 g/dL (12.0-16.0); MEAN CORPUSCULAR VOLUME 96.8 FL (81-99); MEAN PLATELET VOLUME 9.8 FL (7.4-12.2); RED BLOOD COUNT 3.48 10^6/uL (4.20-5.40)
[2018-11-22 06:46] LABS: BLOOD UREA NITROGEN 8 mg/dL (7-22); BUN/CREATININE RATIO 13.33 (6-20); SERUM ALBUMIN 3.2 g/dL (3.5-4.8); Uric Acid 4.9 mg/dl (2.5-6.2)
[2018-11-22] MEDS ORDERED: Ondansetron ODT Tab 4 MG TAB PO PRN (08:00)
[2018-11-22] MEDS ORDERED: Ondansetron ODT Tab 4 MG TAB PO ONE (08:29)
[2018-11-22] MEDS: IBUPROFEN 600 MG TABLET PO PRN ×2 (08:41→14:08)
[2018-11-22] MEDS: Senna/Docusate Tab 1 TAB TAB PO SCH (08:42)
[2018-11-22] MEDS: Prenatal Multivitamin Tab 1 TAB TAB PO SCH (08:43)
[2018-11-22] MEDS ORDERED: NIFEdipine 30 MG ER 24H TABLET PO SCH (09:00)
[2018-11-22 09:09] VITALS: RESP 16
[2018-11-22 14:19] VITALS: BP 132/74; TEMP 97.6; O2SAT 96
--- NOTE | 2018-11-22 15:43 | DCSUMMARY ---
Hospitalization Summary Admit Date: 11/18/18 Discharge Date: 11/22/18 Primary Diagnosis:: s/p primary LTCS for breech presentation, PP HTN Secondary Diagnosis:: Satisfied Parity Primary Surgery and Date: primary LTCS with BTL 11/19/18 Delivery Type: Hospital Course: 33 yo G7 no P3043 who presented on 11/18/18 at 38 3/7 weeks gestation with contractions, that subsided with hydration. She did have 2 elevated blood pressures 20 days apart and was diagnosed with gestational HTN, with elevated LFTs (that normalized the next day prior to delivery). further complicated by breech presentation. ECV was attempted at 37 weeks unsuccessfully, she went to [place] later that week for ECV but they did not attempt 2/2 VICTOR MANUEL of 8cm. She was observed overnight and was IV hydrated. On 11/19/18 her VICTOR MANUEL was 12.5 cm and ECV was again attempted but unsuccessful. She was then taken to for breech presentation with BTL as she had satisfied parity. Post op course notable for a couple of elevated BPs in 140s/90s. She denies LUX, vision changes, RUQ pain. She was queued up for discharge on POD 2 however her BPs were persistently elevated. She was first treated with 30mg Nifedipine XR, without improvement in her blood pressure. She was given a second dose and again remained hypertensive, yet asymptomatic. Labs without abnormality. She was observed again through the night with eventual improvement in her BP. Her motrin was held through the night to see if that would help her pressures. She however woke up this morning with elevated pressures again, a LUX, nauseated. Took a shower and felt lightheaded, then chilled. She ate breakfast, received motrin, zofran and 60mg nifedipine and felt better. LUX was down to a 3/10. Frontal. Feels like migraines she has had but without an aura. Does not think it is positional. Her BPs again normalized and she feels well enough for discharge to home. She has been afebrile, her H/H are almost back to normal. Her LFTs have remained normal since the morning of her delivery. Denies symptoms of cold, congestion, cough, fever. I think the mild persistent LUX may just be related to procardia at this point. Breast feeding well. / Postop Complications: PPHTN requiring 60mg ER nifedipine daily Complications: none apparent Exam - Vitals Vital Signs: Vital Signs Temperature 97.6 F Temperature Source Oral Pulse Rate [Pulse Oximeter] 61 Pulse Rate 85 Respiratory Rate 16 Blood Pressure [Right Arm] 132/74 Blood Pressure 143/85 Pulse Ox 96 Oxygen Flow Rate RA Oxygen Delivery Method Room Air Height 5 ft 8 in Weight 184 lb - General General Appearance: No Acute Distress, Cooperative - Head Head Exam: Normal Inspection - Eye Eye Exam: POSITIVE: Normal Appearance, EOMI, No Scleral Icterus. NEGATIVE: Conjuctival Injection - Neck Neck Exam: Normal Inspection - Respiratory Respiratory Exam: POSITIVE: Clear to Auscultation - Bilaterally, Breathing Non Labored - Cardiovascular Cardiovascular Exam: POSITIVE: RRR - GI/Abdominal GI/Abdominal Exam: POSITIVE: Normal Bowel Sounds Additional GI/Abdominal Exam Details: uterus ttp, more on fundal end likely 2/2 tubal ligation - Extremities Extremities Exam: POSITIVE: +1 Edema. NEGATIVE: Calf Tenderness - Neurological Neurological Exam: POSITIVE: Alert, Oriented x 3, No Facial Droop, Moves All Extremities Equally - Psychiatric Psychiatric Exam: POSITIVE: Flat Affect - Integumentary Integumentary Exam: POSITIVE: Normal Color Patient Problems - Patient Problem List (1) Breech presentation Current Visit: Yes Status: Acute Code(s): O32.1XX0 - Maternal care for breech presentation, not applicable or unspecified Category: Medical (2) hypertension Current Visit: Yes Status: Acute Code(s): O16.5 - Unspecified maternal hypertension, complicating the puerperium Support Text: 33 yo G7 now P3, POD 3 s/p primary LTCS with BTL. Post op course complicated by HTN requiring therapy. Will d/c home on 60mg po daily of Nifedipine XR. To monitor her BPs at home. Given strict return precautions. F/u with me in clinic in one week Category: Medical
== END 2018-11-22 16:05 | disposition home or self-care (01) | DRG 785 ==
LOC: OBOP 01:50 → OBIP 07:11 → MED/SURG 11-19 17:03 → OBIP 11-19 17:05
PROVIDERS: ADMIT Obstetrics & Gynecology; ATTEND Student in an Organized Health Care Education/Training Program